=== PATIENT | male | born 1960 | race Caucasian/White ===

== ENCOUNTER 2025-02-12 12:06 | Inpatient (IN) | payer MEDICAID, OTHER ==
[2025-02-11 20:00] VITALS: RESP 15; O2SAT 95
[~2025-02-12] VITALS: Ht 172.7 cm; Wt 73.0 kg
[2025-02-12] VITALS (28 sets, daily range): BP systolic 111–191; BP diastolic 66–114; PULSE 73–108; RESP 12–23; TEMP 98.3–98.7; O2SAT 92–100
--- NOTE | 2025-02-12 12:18 | ED.PDOC ---
HPI Comments 64 year old male presents to the ED via EMS with a chief complaint of chest pain onset last night. Per EMS, patient was at [facility], had elevated Troponin greater than 3000, negative d-dimer. Patient states he began experiencing LT sided chest pain last night, described as a sharp pain, 8/10 as well as shortness of breath. He was given Nitro and Aspirin by EMS prior to ED arrival. Denies headache, dizziness, nausea, vomiting, abdominal pain, fever, chills. No other symptoms or modifying factors present at this time. Chief Complaint: Chest Pain Time Seen by MD: 12:10 Reviewed Notes: Medications, Allergies Allergies: Coded Allergies: NSAIDs (Verified Allergy, Intermediate, 02/12/25) Information Source: Patient, Emergency Med Personnel Mode of Arrival: EMS Severity: Moderate Timing: Days Duration: Since onset Prehospital treatment: Other (Nitro, aspirin ) Location: Chest (L) Radiation: No Radiation Quality: Sharp Onset: At Rest PE Risk Factors: None History of: None Associated Signs and Symptoms: SOB Past Medical History PAST MEDICAL HISTORY: Unknown Surgical History: Unknown Family History Family History: Reviewed,noncontributory to illness, No family hx of Cancer, No family hx of DM, No family hx of Heart law, No family hx of HTN, No family hx ofKidney law, No family hx of Liver law, No family hx of Lung law, No family hx of Stroke Social History Smoker: Non-Smoker Alcohol: Denies ETOH Use Drugs: Denies Drug Use Lives In: Home Constitutional: denies: chills, diaphoresis, fatigue, fever, malaise, sweats, weakness, others EENTM: denies: blurred vision, double vision, ear bleeding, ear discharge, ear drainage, ear pain, ear ringing, eye pain, eye redness, hearing loss, mouth pain, mouth swelling, nasal discharge, nose bleeding, nose congestion, nose pain, photophobia, tearing, throat pain, throat swelling, voice changes, others Respiratory: reports: shortness of breath; denies: cough, hemoptysis, orthopnea, SOB at rest, SOB with excertion, stridor, wheezing, others Cardiovascular: reports: chest pain; denies: dizzy spells, diaphoresis, Dyspnea on exertion, edema, irregular heart beat, left arm pain, lightheadedness, palpitations, PND, syncope, others Gastrointestinal: denies: abdomen distended, abdominal pain, blood streaked bowels, constipated, diarrhea, dysphagia, difficulty swallowing, hematemesis, melena, nausea, poor appetite, poor fluid intake, rectal bleeding, rectal pain, vomiting, others Genitourinary: denies: burning, dysuria, flank pain, frequency, hematuria, incontinence, penile discharge, penile sore, pain, testicle pain, testicle swelling, urgency, others Neurological: denies: dizziness, fainting, headache, left sided numbness, left sided weakness, numbness, paresthesia, pre-existing deficit, right sided numbness, right sided weakness, seizure, speech problems, tingling, tremors, weakness, others Musculoskeletal: denies: back pain, gout, joint pain, joint swelling, muscle pain, muscle stiffness, neck pain, others Integumetry: denies: bruises, change in color, change in hair/nails, dryness, laceration, lesions, lumps, rash, wounds, others Allergic/Immunocompromised: denies: Difficulty Healing, Frequent Infections, Hives, Itching, others Hematologic/Lymphatic: denies: anemia, blood clots, easy bleeding, easy bruising, swollen glands, others Endocrine: denies: excessive hunger, excessive sweating, excessive thirst, excessive urination, flushing, intolerance to cold, intolerance to heat, unexplained weight gain, unexplained weight loss, others Psychiatric: denies: anxiety, bipolar disorder, depression, hopeless, panic disorder, schizophrenia, sleepless, suicidal, others All Other Systems: Reviewed and Negative Physical Exam General Appearance: No Apparent Distress, Normal HEENT: Normal ENT Inspection, Pharynx Normal, TMs Normal Neck: Full Range of Motion, Non-Tender, Normal, Normal Inspection Respiratory: Chest Non-Tender, Lungs Clear, No Accessory Muscle Use, No Respiratory Distress, Normal Breath Sounds Cardiovascular: No Edema, No JVD, No Murmur, No Gallop, Normal Peripheral Pulses, Regular Rate/Rhythm Breast Exam: Deferred Gastrointestinal: No Organomegaly, Non Tender, No Pulsatile Mass, Normal Bowel Sounds, Soft Genitalia: Deferred Pelvic: Deferred Rectal: Deferred Extremities: No calf tenderness, Normal capillary refill, Normal inspection, Normal range of motion, Non-tender, No pedal edema Musculoskeletal : Apperance: Normal Neurologic: Alert, replenishment specialist II-XII nml as Tested, No Motor Deficits, Normal Affect, Normal Mood, No Sensory Deficits Cerebellar Function: Normal Reflexes: Normal Skin: Dry, Normal Color, Warm Lymphatic: No Adenopathy Was a procedure done? Was a procedure done?: No CP Differential Dx Differential Diagnosis: MAT, PAC's Differential Diagnosis: Medical NonCompliance Differential Diagnosis: Gastritis, Myocardial Infarction X-Ray, Labs, Meds, VS Vital Signs Date Time Temp Pulse Resp B/P (MAP) Pulse Ox O2 Delivery O2 Flow Rate FiO2 02/12/25 13:30 91 02/12/25 13:17 88 02/12/25 12:22 99.4 100 18 140/72 (94) 98 99.4 02/12/25 12:07 94 Lab Test 02/12/25 13:40 02/12/25 12:42 Range/Units Troponin I High Sensitivity Pending 5823 *H </=54 ng/L White Blood Count 9.5 4.4-10.8 10^3/uL Red Blood Count 4.92 4.5-5.90 10^6/uL Hemoglobin 14.1 13.5-17.5 g/dL Hematocrit 43.1 41.0-53.0 % Mean Corpuscular Volume 87.6 80.0-100.0 fL Mean Corpuscular Hemoglobin 28.6 28.0-32.0 pg Mean Corpuscular Hemoglobin Concent 32.6 32.0-36.0 g/dL Red Cell Distribution Width 16.0 H 11.8-14.3 % Platelet Count 239 140-450 10^3/uL Mean Platelet Volume 7.8 6.9-10.8 fL Neutrophils (%) (Auto) 63.2 37.0-80.0 % Lymphocytes (%) (Auto) 27.3 10.0-50.0 % Monocytes (%) (Auto) 7.5 0.0-12.0 % Eosinophils (%) (Auto) 1.3 0.0-7.0 % Basophils (%) (Auto) 0.7 0.0-2.0 % Neutrophils # (Auto) 6.0 1.6-8.6 10 ^3/uL Lymphocytes # (Auto) 2.6 0.4-5.4 10 ^3/uL Monocytes # (Auto) 0.7 0-1.3 10 ^3/uL Eosinophils # (Auto) 0.1 0-0.8 10 ^3/uL Basophils # (Auto) 0.1 0-0.2 10 ^3/uL Nucleated Red Blood Cells 0.2 % Prothrombin Time Pending Prothrombin Time INR Pending Activated Partial Thromboplast Time Pending Sodium Level 136 136-145 mmol/L Potassium Level 4.4 3.5-5.1 mmol/L Chloride Level 106 98-107 mmol/L Carbon Dioxide Level 25 20-31 mmol/L Anion Gap 5 5-15 Blood Urea Nitrogen 21 9-23 mg/dL Creatinine 1.94 H 0.700-1.30 mg/dL Glomerular Filtration Rate Calc 38 >90 mL/min BUN/Creatinine Ratio 10.8 10.0-20.0 Serum Glucose 150 H 74-106 mg/dL Calcium Level 9.6 8.7-10.4 mg/dL B-Type Natriuretic Peptide 74.88 0-100 pg/mL Current Medications Medications (Trade) Dose Ordered Sig/Jose Route Start Time Stop Time Status Last Admin Heparin Sodium (Porcine) 4,000 units ONCE ONCE IV 02/12/25 14:00 02/12/25 14:01 DC 02/12/25 14:01 [place] [id number] Ph: [phone] DIAGNOSTIC IMAGING Diagnostic Imaging Report : [id number] Signed PATIENT: NEPTALI VALADEZ ACCT: [id number] UNIT: [id number] : 1960 LOC: ER ROOM / BED: / AGE / SEX: 64 / M ADM STATUS: REG ER SERVICE 1212 ORDERING PHYSICIAN: ARACELIS ROMERO MD PROCEDURE(s): CXRP - CHEST PORTABLE REASON: chest pain ORDER NUMBER(s): [id number], ACCESSION NUMBER(s): [id number] EXAM: XY CHEST PORTABLE HISTORY: chest pain COMPARISON: None TECHNIQUE: Portable upright AP view of the chest was performed. FINDINGS: No pneumothorax, consolidative infiltrates, or pulmonary edema. The heart is not enlarged. The aortic arch is calcific. IMPRESSION: No acute intrathoracic process. ATED BY: RADHA NOBLE MD DICTATED DATE/TIME: 02/12/25 1237 SIGNED BY: RADHA NOBLE MD SIGNED DATE/TIME: 02/12/25 1237 CC: Time of 1ST Reevaluation: 14:05 Reevaluation 1ST: Unchanged Patient Education/Counseling: Diagnosis, Treatment, Prognosis Family Education/Counseling: No Family Present Additional Information The following tests were ordered, and results were reviewed by me: TROP -x3, EKG -x3, BMP, CBC, BNP, XY CHEST Additional Information was gathered from interviewing the following independent historians: EMS I reviewed and agreed with the following test results read by other providers: XY CHEST I discussed treatment and results with medical personnel and: patient Comprehensive systems review obtained and negative except for what is stated in the HPI. Departure 1 Departure Time of Disposition: 14:04 (Comfort authorization to admit here [id number] presented with chest pain that was concerning for possible STEMI, ACS, PE, Pneumonia, Muscle Strain, COPD, Dissection. Data: 1. I ordered and reviewed the result of at least 3 labs including a CBC, BMP, and Troponin. 2. I independently interpreted the following tests: EKG which shows sinus arrhythmia and Chest X-ray which shows benign chest.Risk:This patient has a high risk of morbidity due to further diagnostic testing or treatment and may suffer from an acute cardiac or respiratory disorder. Workup reveals NSTEMI and patient should be admitted for further workup and possible expert consultation. ) Impression: Primary Impression: NSTEMI (non-ST elevated myocardial infarction) Additional Impression: Acute chest pain Disposition: 09 ADMITTED INPATIENT Admit to: Tele Condition: Guarded Critical Care Note Critical Care Time?: Yes Critical care comment: Acute chest pain Authorized and Performed by: Aracelis Romero MD Total critical care time: Approximately 39 minutes Due to a high probability of clinically significant, life threatening d eterioration, the patient required my highest level of preparedness to intervene emergently and I personally spent this critical care time directly and personally managing the patient. This critical care time included obtaining a history; examining the patient; pulse oximetry; ordering and review of studies; arranging urgent treatment with development of a management plan; evaluation of patient's response to treatment; frequent reassessment; and, discussions with other providers. This critical care time was performed to assess and manage the high probability of imminent, life-threatening deterioration that could result in multi-organ failure. It was exclusive of separately billable procedures and treating other patients and teaching time. Please see my other sections and the rest of the note for further information on patient assessment and treatment. Stability Stability form required: No Heart Score Heart Score: Heart Score Response (Comments) Value History Moderate Suspicious 1 EKG Repolarization Disturb 1 Age 45-64 1 Risk Factors 1 or 2 risk factors 1 Troponin >3 x's Normal limit 2 Total 6 I personally scribed for ARACELIS ROMERO MD ([email or web address]) on 02/12/25 at 12:18. Electronically submitted by Pamela Loera ([email or web address]). I personally scribed for ARACELIS ROMERO MD ([email or web address]) on 02/12/25 at 12:19. Electronically submitted by Pamela Loera ([email or web address]). I personally scribed for ARACELIS ROMERO MD ([email or web address]) on 02/12/25 at 12:54. Electronically submitted by Pamela Loera ([email or web address]). ARACELIS ROMERO MD February 12, 2025 12:18
--- NOTE | 2025-02-12 12:40 | DVH ---
EXAM: XY CHEST PORTABLE HISTORY: chest pain COMPARISON: None TECHNIQUE: Portable upright AP view of the chest was performed. FINDINGS: No pneumothorax, consolidative infiltrates, or pulmonary edema. The heart is not enlarged. The aortic arch is calcific. IMPRESSION: No acute intrathoracic process.
[2025-02-12 12:51] LABS: Basophils # (auto) 0.1 10 ^3/uL (0-0.2); Basophils % (auto) 0.7 % (0.0-2.0); Eosinophils # (auto) 0.1 10 ^3/uL (0-0.8); Eosinophils % (auto) 1.3 % (0.0-7.0); Hematocrit 43.1 % (41.0-53.0); Hemoglobin 14.1 g/dL (13.5-17.5); Lymphocytes # (auto) 2.6 10 ^3/uL (0.4-5.4); Lymphocytes % (auto) 27.3 % (10.0-50.0); Mean Corpuscular Hemoglobin 28.6 pg (28.0-32.0); Mean Corpuscular Hgb Conc. 32.6 g/dL (32.0-36.0); Mean Corpuscular Volume 87.6 fL (80.0-100.0); Monocytes # (auto) 0.7 10 ^3/uL (0-1.3); Monocytes % (auto) 7.5 % (0.0-12.0); Neutrophils % (auto) 63.2 % (37.0-80.0); Nucleated Red Blood Cells % 0.2 %; Platelet Count (auto) 239 10^3/uL (140-450); Red Blood Cells 4.92 10^6/uL (4.5-5.90); White Blood Cell 9.5 10^3/uL (4.4-10.8)
[2025-02-12 13:01] LABS: Chloride 106 mmol/L (98-107); Potassium 4.4 mmol/L (3.5-5.1); Sodium 136 mmol/L (136-145)
[2025-02-12 13:02] LABS: Anion Gap 5 (5-15); Calcium 9.6 mg/dL (8.7-10.4); Carbon Dioxide 25 mmol/L (20-31)
[2025-02-12 13:07] LABS: BUN/Creatinine Ratio 10.8 (10.0-20.0); Blood Urea Nitrogen 21 mg/dL (9-23)
[2025-02-12 13:10] LABS: Glucose 150 mg/dL (74-106)
[2025-02-12] MEDS: HEPARIN SODIUM (PORCINE) 5000 UNITS/ML 1ML VIAL IV ONE (14:01)
[2025-02-12] MEDS: HEPARIN DRIP/D5W 100UNITS/ML 250 ML IV SCH ×2 (14:11→22:19)
[2025-02-12 14:12] LABS: INR 0.99 (0.9-1.15); Partial Thromboplastin Time 29.3 SEC (24.5-34.5); Prothrombin Time 10.5 sec (9.3-11.8)
[2025-02-12 15:14] LABS: Triglycerides 208 mg/dL (< 150)
[2025-02-12 15:15] LABS: LDL Cholesterol 153 mg/dL (< 100)
[2025-02-12 15:16] LABS: HDL Cholesterol 58 mg/dL (40-59)
[2025-02-12 15:17] LABS: Cholesterol 245 mg/dL (< 200)
--- NOTE | 2025-02-12 15:24 | DVHINCON2 ---
Date Seen: February 12, 2025 Referring Physician MD Heather Reason for Consultation NSTEMI History of Present Illness This is a pleasant 64-year-old man who presented to the emergency room via EMS from local [facility] with a chief complaint of chest pain x 3 days. The patient complains of progressive chest pain described as left-sided, radiating to the left upper back, non provoked, intermittent, and pressure-like. medicated at home with her Percocet and morphine with mild relief of symptoms which returned soon after. Denies shortness of breath, palpitations, diaphoresis, dizziness, or syncopal events. He has undergone multiple 12 lead electrocardiograms x 2 revealing a sinus rhythm without evidence of acute ST-T segment changes. Troponin levels are trending up with latest >6,000 ng/L (initial trop at [facility] was 3,000s ng/L). Denies family history for cardiovascular disease. Significant medical history includes hypertension, dyslipidemia, insulin-dependent diabetes mellitus, chronic kidney disease, HIV positive, history of tobacco use including 21 pack years, depression, and obesity. Past Medical History Past medical history reviewed. No other significant than mentioned above. Past Surgical History Ureteral stent placement, 2012 Family History Family history reviewed. Not significant for cardiovascular disease. Social History Denies the use of illicit drugs or tobacco use. Admits to occasional alcohol use. Reports history of tobacco use, quit two years ago. Allergies: Coded Allergies: NSAIDs (Verified Allergy, Intermediate, 02/12/25) Home Meds Home medications reviewed. Current Medications Current Medications Medications (Trade) Dose Ordered Sig/Jose Route PRN Reason Start Time Stop Time Status Last Admin Heparin Sodium/ Dextrose 250 ml @ 9 mls/hr Q24H IV 02/12/25 14:00 02/12/25 14:11 Review of Systems Constitutional: No symptom reported Ears, Nose, & Throat: No symptom reported Eyes: No symptom reported Neurological: No symptoms reported Pulmonary/Respiratory: No symptom reported Cardiovascular: Chest pain Gastrointestinal: No symptom reported Genitourinary: No symptom reported Musculoskeletal: No symptom reported Skin: No symptom reported Psychiatric: No symptom reported Endocrine: No symptom reported Hemotologic/Lymphatic: No symptom reported Vital Signs Vital Signs Date Time Temp Pulse Resp B/P (MAP) Pulse Ox O2 Delivery O2 Flow Rate FiO2 02/12/25 15:01 90 02/12/25 13:34 11 139/77 (97) 93 02/12/25 13:15 Room Air* 0 21 02/12/25 12:22 99.4 99.4 Physical Exam General Appearance: Cooperative. Well developed. Obese. In no acute distress Head Exam: Normal inspection Neck Exam: Normal inspection. Non-tender. Normal alignment Pulmonary/Respiratory: Chest non-tender. Clear bilateral breath sounds Cardiovascular/Chest: Regular rate and rhythm. S1, S2. Sinus rhythm. No murmurs. No JVD. Peripheral Pulses: 2+ Radial (R). 2+ Radial (L). 2+ Pedal (R). 2+ Pedal (L) Abdominal Exam: Normal bowel sounds. Soft. Nontender. No hepatospenomegaly. No masses Ankle Exam: Negative ankle edema Lower extremities: Negative lower extremity edema Neuro/Mental Status: A&O x4. Coherent Thoughts/Psych: Normal thought pattern. Appropriate mood and affect. Good judgement and insight Appearance: In no acute distress Skin Exam: Normal inspection. Normal color. Warm. Dry Labs/Diagnostic Data Labs Test 02/12/25 13:40 02/12/25 12:42 Range/Units Troponin I High Sensitivity 6542 *H </=54 ng/L White Blood Count 9.5 4.4-10.8 10^3/uL Red Blood Count 4.92 4.5-5.90 10^6/uL Hemoglobin 14.1 13.5-17.5 g/dL Hematocrit 43.1 41.0-53.0 % Mean Corpuscular Volume 87.6 80.0-100.0 fL Mean Corpuscular Hemoglobin 28.6 28.0-32.0 pg Mean Corpuscular Hemoglobin Concent 32.6 32.0-36.0 g/dL Red Cell Distribution Width 16.0 H 11.8-14.3 % Platelet Count 239 140-450 10^3/uL Mean Platelet Volume 7.8 6.9-10.8 fL Neutrophils (%) (Auto) 63.2 37.0-80.0 % Lymphocytes (%) (Auto) 27.3 10.0-50.0 % Monocytes (%) (Auto) 7.5 0.0-12.0 % Eosinophils (%) (Auto) 1.3 0.0-7.0 % Basophils (%) (Auto) 0.7 0.0-2.0 % Neutrophils # (Auto) 6.0 1.6-8.6 10 ^3/uL Lymphocytes # (Auto) 2.6 0.4-5.4 10 ^3/uL Monocytes # (Auto) 0.7 0-1.3 10 ^3/uL Eosinophils # (Auto) 0.1 0-0.8 10 ^3/uL Basophils # (Auto) 0.1 0-0.2 10 ^3/uL Nucleated Red Blood Cells 0.2 % Prothrombin Time 10.5 9.3-11.8 sec Prothrombin Time INR 0.99 0.9-1.15 Activated Partial Thromboplast Time 29.3 24.5-34.5 SEC Sodium Level 136 136-145 mmol/L Potassium Level 4.4 3.5-5.1 mmol/L Chloride Level 106 98-107 mmol/L Carbon Dioxide Level 25 20-31 mmol/L Anion Gap 5 5-15 Blood Urea Nitrogen 21 9-23 mg/dL Creatinine 1.94 H 0.700-1.30 mg/dL Glomerular Filtration Rate Calc 38 >90 mL/min BUN/Creatinine Ratio 10.8 10.0-20.0 Serum Glucose 150 H 74-106 mg/dL Calcium Level 9.6 8.7-10.4 mg/dL B-Type Natriuretic Peptide 74.88 0-100 pg/mL Triglycerides Level 208 H < 150 mg/dL Cholesterol Level 245 H < 200 mg/dL LDL Cholesterol 153 H < 100 mg/dL HDL Cholesterol 58 40-59 mg/dL Assessment Non ST-elevation myocardial infarction Rule out structural heart disease Hypertension Dyslipidemia Insulin-dependent diabetes mellitus Positive HIV status Obesity Plan/Recommendation (Dr. Higgins) Scheduled for urgent cardiac catheterization and coronary angiogram at first available. All risks and benefits of the procedure were discussed with the patient and at beside who agreed to proceed with intervention. All questions answered. In the meantime, continue heparin drip per pharmacy protocol as well as a transthoracic echocardiogram to rule out structural heart disease. Initiate renal protection and obtain nephrology consultation. Monitor ECG changes and notify. Continue ACS protocol. Thank you for allowing us to participate in this patient's care. Please call if you have any questions or concerns. Critical care time: 40 min. This medical document was created using an electronic medical record system with voice recognition software and computerized dictation system. Although this document has been carefully reviewed, there might still be some phonetic and typographical errors. Occasional wrong-word or ``sound-alike substitutions may have occurred due to the inherent limitations of voice recognition software. These areas are purely typographical due to imperfections of the software programs and do not reflect any compromise in the patient's medical care. Please read the chart carefully and recognize, using context, where these substitutions have occurred. Plan discussed with: Patient, Other NYHA Physical activity limitations: NA Date of Service: February 12, 2025 Billing Provider: JAKY BARRIGA Cardiology Common Codes: 31858-XUWEIODL CARE 30-74 MIN JAKY BARRIGA February 12, 2025 15:24
[2025-02-12] MEDS: IODIXANOL 320MG/ML 100ML BTL IV ONE ×2 (15:42→16:21)
[2025-02-12] MEDS ORDERED: ASPirin 81 mg TAB PO SCH (16:04)
[2025-02-12] MEDS: ANGIOMAX 250 MG VIAL IV ONE (16:15)
[2025-02-12] MEDS: LIDOCAINE 2%HCL (LOCAL ANESTH.) INJ 20ML MDV ONE (16:16)
[2025-02-12] MEDS: VERAPAMIL 2.5MG/ML INJ 2ML VIAL IV ONE (16:16)
[2025-02-12] MEDS: SODIUM CHL 0.9% 50 ML ONE (16:16)
[2025-02-12] MEDS: HEPARIN SODIUM (PORCINE) 5000 UNITS/ML 1ML VIAL ONE (16:16)
[2025-02-12] MEDS: fentaNYL CITRATE 100 MCG/2 ML VL ONE (16:18)
[2025-02-12] MEDS: MIDAZOLAM HCL 2MG/2ML 2ml VIAL (1mg/ml) ONE (16:19)
--- NOTE | 2025-02-12 17:12 | DVHOP2 ---
Operative Report - 2 Report Details Date: 02/12/25 Preop Diagnosis: CAD Postop Diagnosis: Severe stenosis of the RCA. Distal left main disease. Circumflex disease. Normal LV function Surgeon: Trina Higgins MD Anesthesiologist: Conscious sedation. Anesthesia: Mac, Local Consent: The patient was informed of the risks and benefits of the procedure. These include but are not limited to complications of anesthesia, postoperative infection, incomplete relief of symptoms, recurrence of symptoms, damage to blood vessels, nerves and tendons, deep venous thrombosis, pulmonary embolism and possible need for repeat surgery in the future. Complications: No complications Findings: CAD Indications for Surgery: Non ST-elevation GA Name of Procedure Performed Left heart catheterization. Bilateral cine coronary angiography. Left ventriculography. Intravascular ultrasound evaluation of distal left main. Procedure Details Procedure Details: Prior local anesthesia with 2% lidocaine to the right wrist and full informed consent obtained the patient was prepped and draped in usual fashion followed by placement of a six Thai sheath into the radial artery through which a three five EBU guide was used for ventriculography and cannulation of both right and left coronary ostia without complications. Hemodynamics: Aortic blood pressure was 130/50 end-diastolic pressure was 18. There was no gradient across aortic valve on pullback. Coronary anatomy: The RCA is a large vessel it has a 99% subtotal stenosis at its mid section. Distal segment has a 75 80% lesion. Posterolateral branches and PDA are within normal limits. Left main is large. It is normal in its proximal mid section. There is a lesion involving the distal left main LAD and circumflex. The circumflex proximally is normal. The mid circumflex gives off an obtuse marginal branch. The obtuse marginal at its mid section has a 90% stenosis. Left anterior descending coronary artery is a large vessel we will the ostial LAD being involved with the plaque extending from the left main to the LAD as well as into the circumflex. The mid and distal LAD are free of significant disease as are the diagonals. Intravascular ultrasound was performed of the distal left main. Total circumferential area of the distal left main at the level of the LAD is 4.8 mm squared. This is indicative of severe stenosis. Ventriculography in the THAKUR projection shows an EF of 55% Impression: Distal left main disease. Severe stenosis of the RCA. Normal ejection fraction. Elevated left ventricular end-diastolic pressure. Significant disease of the distal left main with a circumferential area of less than 4.8. This is indicative of severe left main disease Recommendations: Patient will be transferred for coronary bypass grafting. Condition Good Disposition Still a Patient Date of Service: February 12, 2025 Billing Provider: TRINA HIGGINS Sr., MD Cardiology Common Codes: PROCEDURE ONLY Cardiology Procedure Codes: 92547-YPIC HEART CATH W/INTRA INJ (Intravascular ultrasound evaluation of the left main) TRINA HIGGINS Sr., MD February 12, 2025 17:12
[2025-02-12] MEDS ORDERED: MORPHINE SULFATE INJ 2 MG/ml SYRG IV PRN ×2 (17:15→17:30)
[2025-02-12] MEDS ORDERED: NITROGLYCERIN 0.4 MG SL TAB SL PRN ×2 (17:15→17:30)
[2025-02-12] MEDS ORDERED: hydrALAZINE HCL 20 MG/ML VL IV PRN (17:15)
[2025-02-12] MEDS ORDERED: NITROGLYCERIN 50MG/250ML 250 ML IV ONE (17:15)
[2025-02-12] MEDS ORDERED: ONDANSETRON HCL 4 MG/2 ML VIAL IV PRN (17:30)
[2025-02-12] MEDS ORDERED: MORPHINE SULFATE 4 MG/ML SYR/VIAL IV PRN (17:30)
[2025-02-12] MEDS ORDERED: ACETAMINOPHEN 325 MG TAB PO PRN (17:30)
--- NOTE | 2025-02-12 17:41 | DVHHP2 ---
History of Present Illness Reason for Visit: Chest pain History of Present Illness Ian Mcnulty is a 64-year-old male with past medical history of hypertension, diabetes type 2, HIV/AIDS, and anemia who presents to the ED with chest pain radiating to his back. Patient states that the chest pain is 9/10 pressure-like and sharp in his back constant. He states that he was at home watching TV at the time when the pain started. Patient states started the no triggering or alleviating factors. Patient also reports that he does not use home oxygen however upon examination patient is on 2 L nasal cannula. Patient denies any recent trauma or injury, recent sick contacts, recent travels, recent ingestion of spoiled food, fever chills, lightheadedness, weakness, dizziness, abdominal pain, nausea, vomiting, or diarrhea. Cardiovascular: HTN Heme/Onc: Anemia NOS Endocrine: Diabetes Past Medical History HIV/aids Past Surgical History: None Family History: None Smoke: Quit ALCOHOL: none Drugs: None Lives: with Family Domestic Violence: Neg Review of Systems Cardiovascular: Chest Pain Allergies: Coded Allergies: NSAIDs (Verified Allergy, Intermediate, 02/12/25) Medications Current Medications Medications Dose Ordered Sig/Jose Route Start Time Stop Time Status Last Admin Dose Admin Heparin Sodium/ Dextrose 250 ml @ 9 mls/hr Q24H IV 02/12/25 14:00 02/12/25 14:11 9 MLS/HR Sodium Chloride 1,000 ml @ 75 mls/hr [id number] IV 02/12/25 15:30 Atorvastatin Calcium 40 mg HS PO 02/12/25 22:00 Aspirin 81 mg DAILY PO 02/12/25 16:04 Hold Carvedilol 6.25 mg Q12HR PO 02/12/25 22:00 UNV Hydralazine HCl 10 mg Q6HP PRN IV 02/12/25 17:15 UNV Aspirin 81 mg DAILY PO 02/13/25 10:00 UNV Morphine Sulfate 2 mg Q30M PRN IV 02/12/25 17:15 UNV Nitroglycerin 250 ml @ 1.5 mls/hr Q24H IV 02/12/25 17:15 UNV Exam Vital Signs Vital Signs Date Time Temp Pulse Resp B/P (MAP) Pulse Ox O2 Delivery O2 Flow Rate FiO2 02/12/25 16:16 87 168/98 02/12/25 13:34 11 93 02/12/25 13:15 Room Air* 0 21 02/12/25 12:22 99.4 99.4 General Appearance: Alert, Oriented X3, Cooperative, No acute distress HEENT: Atraumatic, PERRLA, EOMI, Mucous membr. moist/pink Respiratory: Normal air movement Cardiovascular: Regular rate, Normal S1, Normal S2, No murmurs Abdominal: Soft Extremities: No clubbing, No cyanosis, No edema, Normal pulses Skin: No significant lesion Neuro: Normal speech, Strength at 5/5 X4 ext, Normal tone, Sensation intact Psych/Mental Status: Mental status NL, Mood NL Labs/Xrays Labs Test 02/12/25 13:40 02/12/25 12:42 Range/Units Troponin I High Sensitivity 6542 *H </=54 ng/L White Blood Count 9.5 4.4-10.8 10^3/uL Red Blood Count 4.92 4.5-5.90 10^6/uL Hemoglobin 14.1 13.5-17.5 g/dL Hematocrit 43.1 41.0-53.0 % Mean Corpuscular Volume 87.6 80.0-100.0 fL Mean Corpuscular Hemoglobin 28.6 28.0-32.0 pg Mean Corpuscular Hemoglobin Concent 32.6 32.0-36.0 g/dL Red Cell Distribution Width 16.0 H 11.8-14.3 % Platelet Count 239 140-450 10^3/uL Mean Platelet Volume 7.8 6.9-10.8 fL Neutrophils (%) (Auto) 63.2 37.0-80.0 % Lymphocytes (%) (Auto) 27.3 10.0-50.0 % Monocytes (%) (Auto) 7.5 0.0-12.0 % Eosinophils (%) (Auto) 1.3 0.0-7.0 % Basophils (%) (Auto) 0.7 0.0-2.0 % Neutrophils # (Auto) 6.0 1.6-8.6 10 ^3/uL Lymphocytes # (Auto) 2.6 0.4-5.4 10 ^3/uL Monocytes # (Auto) 0.7 0-1.3 10 ^3/uL Eosinophils # (Auto) 0.1 0-0.8 10 ^3/uL Basophils # (Auto) 0.1 0-0.2 10 ^3/uL Nucleated Red Blood Cells 0.2 % Prothrombin Time 10.5 9.3-11.8 sec Prothrombin Time INR 0.99 0.9-1.15 Activated Partial Thromboplast Time 29.3 24.5-34.5 SEC Sodium Level 136 136-145 mmol/L Potassium Level 4.4 3.5-5.1 mmol/L Chloride Level 106 98-107 mmol/L Carbon Dioxide Level 25 20-31 mmol/L Anion Gap 5 5-15 Blood Urea Nitrogen 21 9-23 mg/dL Creatinine 1.94 H 0.700-1.30 mg/dL Glomerular Filtration Rate Calc 38 >90 mL/min BUN/Creatinine Ratio 10.8 10.0-20.0 Serum Glucose 150 H 74-106 mg/dL Calcium Level 9.6 8.7-10.4 mg/dL B-Type Natriuretic Peptide 74.88 0-100 pg/mL Triglycerides Level 208 H < 150 mg/dL Cholesterol Level 245 H < 200 mg/dL LDL Cholesterol 153 H < 100 mg/dL HDL Cholesterol 58 40-59 mg/dL Thyroid Stimulating Hormone (TSH) 4.83 H 0.55-4.78 uIU/mL Assessment/Plan Assessment/Plan Assessment NSTEMI Acute hypoxic respiratory failure FLO Hyperlipidemia Ex-smoker History of hypertension History of diabetes type 2 History of anemia History of HIV/aids Plan Admit to ICU Nitro drip Elevated trops Hemoglobin A1c ISS and Accu-Cheks Antiemetics Pain management Diet UDS TSH Lipid panel Echo Home medications reconciled DVT prophylaxis-patient on drip PUD prophylaxis-not indicated no history of GERD or GI bleed Discussed plan of care with patient and nurse Plan to transfer to [place] for CABG consult Counseled patient on continuous of cessation of tobacco use Plan discussed with: Patient Date of Service: February 12, 2025 Billing Provider: HAYDEN VALDERRAMA Common Visit Codes: [id number] INP/OBS CARE (HIGH) HAYDEN VALDERRAMA February 12, 2025 17:41
[2025-02-12] MEDS ORDERED: DEXTROSE (50%) 50ML SYRG IV PRN (17:45)
[2025-02-12 18:15] LABS: HDL Cholesterol 57 mg/dL (40-59)
[2025-02-12 18:16] LABS: Cholesterol 238 mg/dL (< 200)
[2025-02-12 18:18] LABS: LDL Cholesterol 149 mg/dL (< 100); Triglycerides 203 mg/dL (< 150)
[2025-02-12] MEDS: NITROGLYCERIN 50MG/250ML 250 ML IV SCH (18:31)
[2025-02-12] MEDS: NITROGLYCERIN 50MG/250ML 250 ML IV ONE (20:07)
[2025-02-12] MEDS: SODIUM CHLORIDE 0.9% 1,000 ML IV SCH (20:10)
[2025-02-12] MEDS: ATORVASTATIN 20 MG TAB PO SCH (20:52)
[2025-02-12] MEDS: EZETIMIBE 10 MG TAB PO ONE (20:53)
[2025-02-12] MEDS: CARVEDILOL 3.125 MG TAB PO SCH (20:54)
[2025-02-12] MEDS: ACCU-CHEK COMFORT CURVE STRIP VI SCH (21:02)
[2025-02-12] MEDS: InsuLIN REG 1unit/0.01ml Soln (100units/ml) SC SCH (21:02)
[2025-02-12 21:21] LABS: INR 1.05 (0.9-1.15); Prothrombin Time 11.1 sec (9.3-11.8)
[2025-02-12 21:24] LABS: Partial Thromboplastin Time 79.4 SEC (24.5-34.5)
[2025-02-12] MEDS ORDERED: HEPARIN DRIP/D5W 100UNITS/ML 250 ML IV SCH (21:30)
[2025-02-12] MEDS ORDERED: LISI40TA16 PO (21:51)
[2025-02-12] MEDS ORDERED: EZET10TA22 PO (21:51)
[2025-02-12] MEDS ORDERED: GLIP10TA9 PO (21:51)
[2025-02-12] MEDS ORDERED: METO25TA5 PO (21:51)
[2025-02-12] MEDS ORDERED: CITA-73 PO (21:51)
[2025-02-12] MEDS ORDERED: PIO30T PO (21:51)
[2025-02-12] MEDS ORDERED: DOLU1TAB5 PO (21:51)
[2025-02-12] MEDS ORDERED: ATOR-47 PO (21:51)
[2025-02-12] MEDS ORDERED: RITO100T PO (21:51)
[2025-02-12] MEDS ORDERED: DARU800T3 PO (21:51)
--- NOTE | 2025-02-12 22:52 | DVHSR ---
APPROVED REPORT EXAM: Two-dimensional and M-mode echocardiogram with Doppler and color Doppler. Blood Pressure: 139/77 mmHg INDICATION NSTEMI RISK FACTORS Height: 69, Weight: 160 DIMENSIONS LVDd4.3 (3.8-5.7cm)LA (2D)3.7 (1.9-4.0cm)Aortic Root3.9 (2.0-3.7cm) LVDs3.4 (2.5-4.0cm)LA (MM) (1.9-4.0cm)Aortic Cusp Exc1.8 (1.5-2.0cm) EF (%) 46.0 (55-70%)Rt. Atrium (1.9-4.0cm)Asc. Aorta cm Mitral Valve MitralMitral Stenosis E wave0.63m/sMV Mean GR.mmHg A wave0.93m/sMV Peak GR.101mmHg E/A ratio0.72D MVAcm2 DECEL [id number] 1/2 [id number] IVRTmsDop MVA3.56cm2 Aortic Valve Aortic ValveAortic Stenosis V10.89m/Nilda Mean GR.4mmHg V21.29m/Nilda Peak GR.7mmHg LVOT Diameter2.1 (1.8-2.4cm)Doppler AVA2.39cm2 Pulmonic Valve V21.15m/s Other Information Technically limited study due to body habitus. Conclusion Sinus rhythm. Concentric LVH with the aortic root enlargement. Valves appear to be structurally normal. Left ventricular function is diminished. EF is about 35-40% with global hypokinesis. Normal RV func tion. Dopplers unremarkable. No pericardial effusion masses or vegetations
[2025-02-13] VITALS (74 sets, daily range): BP systolic 103–128; BP diastolic 58–81; PULSE 75–121; RESP 8–26; TEMP 97.9–98.9; O2SAT 86–99
[2025-02-13 04:10] LABS: Basophils # (auto) 0.1 10 ^3/uL (0-0.2); Basophils % (auto) 0.8 % (0.0-2.0); Eosinophils # (auto) 0.1 10 ^3/uL (0-0.8); Eosinophils % (auto) 1.4 % (0.0-7.0); Hematocrit 39.2 % (41.0-53.0); Hemoglobin 12.7 g/dL (13.5-17.5); Lymphocytes # (auto) 2.6 10 ^3/uL (0.4-5.4); Lymphocytes % (auto) 28.1 % (10.0-50.0); Mean Corpuscular Hemoglobin 28.4 pg (28.0-32.0); Mean Corpuscular Hgb Conc. 32.5 g/dL (32.0-36.0); Mean Corpuscular Volume 87.4 fL (80.0-100.0); Monocytes # (auto) 0.8 10 ^3/uL (0-1.3); Monocytes % (auto) 9.2 % (0.0-12.0); Neutrophils # (auto) 5.6 10 ^3/uL (1.6-8.6); Neutrophils % (auto) 60.5 % (37.0-80.0); Platelet Count (auto) 208 10^3/uL (140-450); Red Blood Cells 4.48 10^6/uL (4.5-5.90); Red Cell Distribution Width 16.1 % (11.8-14.3); White Blood Cell 9.2 10^3/uL (4.4-10.8)
[2025-02-13 04:15] LABS: Anion Gap 7 (5-15); Carbon Dioxide 22 mmol/L (20-31); Chloride 107 mmol/L (98-107); Potassium 4.4 mmol/L (3.5-5.1); Sodium 136 mmol/L (136-145)
[2025-02-13 04:16] LABS: Calcium 9.3 mg/dL (8.7-10.4)
[2025-02-13 04:21] LABS: BUN/Creatinine Ratio 9.9 (10.0-20.0); Blood Urea Nitrogen 17 mg/dL (9-23)
[2025-02-13 04:22] LABS: Glucose 142 mg/dL (74-106); Magnesium 1.8 mg/dL (1.6-2.6)
[2025-02-13] MEDS: HEPARIN DRIP/D5W 100UNITS/ML 250 ML IV SCH ×2 (04:32→12:31)
[2025-02-13] MEDS: ASPirin 81 mg TAB PO SCH (09:55)
[2025-02-13 10:46] LABS: INR 1.03 (0.9-1.15); Prothrombin Time 10.9 sec (9.3-11.8)
--- NOTE | 2025-02-13 12:15 | CONS ---
Pharmacy Clinical Information: INCREASE HEPARIN DRIP RATE TO 1100 UNITS/HR = 11 ML/HR PER APTT OF 42 (SUBTH ERAPEUTIC) NEXT APTT DRAW SCHEDULED FOR 1800 PER RX PROTOCOL REHAN COFFEY PHARMACIST February 13, 2025 12:15
--- NOTE | 2025-02-13 14:22 | DVHPN2 ---
Subjective No cardiac events reported Denies chest pain or shortness of breath Reviewed: Care Plan, Medications Changes from previous H/P or p: No Changes Cardiovascular: Chest Pain Objective Vitals Vital Signs Date Time Temp Pulse Resp B/P (MAP) Pulse Ox O2 Delivery O2 Flow Rate FiO2 02/13/25 12:02 18 96 Room Air* 0 21 02/13/25 10:55 81 115/69 02/13/25 08:00 98.9 98.9 Intake/Output Intake and Output 02/13/25 07:00 Intake Total 1218.5 ml Output Total 600 ml Balance 618.5 ml Intake Oral 240 ml IV Total 978.5 ml Output Urine Total 600 ml General Appearance: Alert, Oriented X3 Cardiovascular: Regular rate, Normal S1, Normal S2 Medications Current Medications Medications Dose Ordered Sig/Jose Route Start Time Stop Time Status Last Admin Dose Admin Sodium Chloride 1,000 ml @ 75 mls/hr [id number] IV 02/12/25 15:30 02/12/25 20:10 75 MLS/HR Atorvastatin Calcium 40 mg HS PO 02/12/25 22:00 02/12/25 20:52 40 MG Carvedilol 6.25 mg Q12HR PO 02/12/25 22:00 02/13/25 09:55 6.25 MG Hydralazine HCl 10 mg Q6HP PRN IV 02/12/25 17:15 Aspirin 81 mg DAILY PO 02/13/25 10:00 02/13/25 09:55 81 MG Morphine Sulfate 2 mg Q30M PRN IV 02/12/25 17:15 Nitroglycerin 250 ml @ 1.5 mls/hr Q24H IV 02/12/25 17:15 02/12/25 18:31 1.5 MLS/HR Morphine Sulfate 2 mg Q30MP PRN IV 02/12/25 17:30 Acetaminophen 650 mg Q6HP PRN PO 02/12/25 17:30 Ondansetron HCl 4 mg Q4HP PRN IV 02/12/25 17:30 Diagnostic Test (Pha) 1 strip ACHS 02/12/25 22:00 02/13/25 12:01 1 STRIP Insulin Human Regular ACHS SC 02/12/25 22:00 Dextrose 50 ml UD PRN IV 02/12/25 17:45 Heparin Sodium/ Dextrose 250 ml @ 7 mls/hr Q24H IV 02/12/25 21:30 Cancel Heparin Sodium/ Dextrose 250 ml @ 11 mls/hr [id number] IV 02/13/25 12:15 02/13/25 12:31 11 MLS/HR Laboratory Results Laboratory Tests 02/13/25 03:00 Chemistry Test 02/13/25 03:00 Calcium Level 9.3 mg/dL (8.7-10.4) Magnesium Level 1.8 mg/dL (1.6-2.6) Coagulation Test 02/12/25 20:44 02/13/25 03:00 02/13/25 10:21 Prothrombin Time 11.1 sec (9.3-11.8) 10.9 sec (9.3-11.8) Prothrombin Time INR 1.05 (0.9-1.15) 1.03 (0.9-1.15) Activated Partial Thromboplast Time 79.4 SEC (24.5-34.5) *H 43.3 SEC (24.5-34.5) H 42.0 SEC (24.5-34.5) H Microbiology Microbiology Date/Time Source Procedure Growth Status 02/12/25 20:00 Nose MRSA Screen - Final Complete Assessment/Plan Assessment/Plan CAD s/p coronary angiogram with multivessel disease Non ST-elevation myocardial infarction HFrEF - EF 35-40% Hypertension Dyslipidemia Insulin-dependent diabetes mellitus Positive HIV status Obesity Recommendations: Transfer to [facility] for [facility]G. Continue with current treatment. Close cardiac nurse practitioner. Plan discussed with: Patient Date of Service: February 13, 2025 Billing Provider: TRINA MOORE Sr., MD Common Visit Codes: CONSULT ONLY ARLETH GIPSON February 13, 2025 14:22
--- NOTE | 2025-02-13 15:41 | DVHDS2 ---
Discharge Summary Date of Admission February 12, 2025 at 17:27 Date of Discharge: February 13, 2025 Labs/Diagnostic Data: Laboratory Results Test 02/13/25 10:21 02/13/25 06:21 02/13/25 03:00 02/12/25 13:40 Prothrombin Time 10.9 sec (9.3-11.8) Prothrombin Time INR 1.03 (0.9-1.15) Activated Partial Thromboplast Time 42.0 SEC (24.5-34.5) POC Glucose 129 mg/dl (70-106) White Blood Count 9.2 10^3/uL (4.4-10.8) Red Blood Count 4.48 10^6/uL (4.5-5.90) Hemoglobin 12.7 g/dL (13.5-17.5) Hematocrit 39.2 % (41.0-53.0) Mean Corpuscular Volume 87.4 fL (80.0-100.0) Mean Corpuscular Hemoglobin 28.4 pg (28.0-32.0) Mean Corpuscular Hemoglobin Concent 32.5 g/dL (32.0-36.0) Red Cell Distribution Width 16.1 % (11.8-14.3) Platelet Count 208 10^3/uL (140-450) Mean Platelet Volume 8.8 fL (6.9-10.8) Neutrophils (%) (Auto) 60.5 % (37.0-80.0) Lymphocytes (%) (Auto) 28.1 % (10.0-50.0) Monocytes (%) (Auto) 9.2 % (0.0-12.0) Eosinophils (%) (Auto) 1.4 % (0.0-7.0) Basophils (%) (Auto) 0.8 % (0.0-2.0) Neutrophils # (Auto) 5.6 10 ^3/uL (1.6-8.6) Lymphocytes # (Auto) 2.6 10 ^3/uL (0.4-5.4) Monocytes # (Auto) 0.8 10 ^3/uL (0-1.3) Eosinophils # (Auto) 0.1 10 ^3/uL (0-0.8) Basophils # (Auto) 0.1 10 ^3/uL (0-0.2) Nucleated Red Blood Cells 0.0 % Sodium Level 136 mmol/L (136-145) Potassium Level 4.4 mmol/L (3.5-5.1) Chloride Level 107 mmol/L (98-107) Carbon Dioxide Level 22 mmol/L (20-31) Anion Gap 7 (5-15) Blood Urea Nitrogen 17 mg/dL (9-23) Creatinine 1.71 mg/dL (0.700-1.30) Glomerular Filtration Rate Calc 45 mL/min (>90) BUN/Creatinine Ratio 9.9 (10.0-20.0) Serum Glucose 142 mg/dL (74-106) Calcium Level 9.3 mg/dL (8.7-10.4) Magnesium Level 1.8 mg/dL (1.6-2.6) Troponin I High Sensitivity 6542 ng/L (</=54) Test 02/12/25 12:42 Hemoglobin A1c 8.3 % A1C (<5.7) B-Type Natriuretic Peptide 74.88 pg/mL (0-100) Triglycerides Level 203 mg/dL (< 150) Cholesterol Level 238 mg/dL (< 200) LDL Cholesterol 149 mg/dL (< 100) HDL Cholesterol 57 mg/dL (40-59) Thyroid Stimulating Hormone (TSH) 5.15 uIU/mL (0.55-4.78) Other Laboratory Tests 02/13/25 03:00 Brief Hx & Hospital Course: Final diagnoses: CAD s/p coronary angiogram with multivessel coronary artery disease Non ST-elevation myocardial infarction HFrEF - EF 35-40% Hypertension Dyslipidemia Insulin-dependent diabetes mellitus Positive HIV status Obesity Acute kidney injury versus chronic kidney disease 64-year-old male with a history of hypertension and diabetes and HIV and anemia came with the chest pain and back pain He was diagnosed with a NSTEMI with the elevated troponin of 6542 He was seen by Cardiology and an angiogram was done showed three-vessel coronary artery disease requiring CABG surgery and therefore he was recommended to be transferred to higher level of care He has been accepted at [facility] and we are waiting on a bed Vital signs stable He is stable for transfer Continue heparin IV drip Nitroglycerin IV drip p.r.n. chest pain IV fluids normal saline Aspirin Lipitor Coreg Transfer to higher level of care as soon as possible for CABG surgery Condition at Discharge: Stable Final Diagnosis/Problems List CAD s/p coronary angiogram with multivessel coronary artery disease Non ST-elevation myocardial infarction HFrEF - EF 35-40% Hypertension Dyslipidemia Insulin-dependent diabetes mellitus Positive HIV status Obesity Discharge Disposition: Acute Care Facility SNF Discharge Will this Physician continue t: No Discharge Statement: "Patient was advised to return to the ER or call 911 if any headaches, dizziness, shortness of breath, chest pain, abdominal pain, bleeding, fevers, or worsening of medical condition. Patient was counseled about treatment plan, medications, possible side effects, patientverbalized understanding. All questions were answered to the best of my ability. This discharge took greater then 30 minutes in planning, reviewing documentation, counseling the patient, and discussing with other team members." ASSESSMENT ASSESSMENT Assessment Severe stenosis of the RCA. Distal left main disease. Circumflexdisease. Normal LV function Date of Service: February 13, 2025 Billing Provider: CELY SAGE MD Common Visit Codes: [id number] DISCH DAY >30min CELY SAGE MD February 13, 2025 15:41
--- NOTE | 2025-02-13 16:07 | DVHINCON2 ---
Date of service: February 13, 2025 Referring Physician ivis Reason for Consultation scotty History of Present Illness 64 years old male with past medical history of Chronic kidney disease, diabetes, hypertension, HIV, history of tobacco use, depression, presented with chief complaints of chest pain for three days radiating to left upper back prior to admission patient underwent cardiac catheterization yesterday showing multive ssel disease and cardiology recommending higher level of care transfer for CT surgery evaluation Patient is currently on heparin drip Reports his chest pain is better Patient also got IV fluids from yesterday till today Renal function today after angiogram yesterday is stable Past Medical History As per HPI Past Surgical History As per HPI Allergies: Coded Allergies: Shellfish Allergy (Verified Allergy, Intermediate, swollen eyes/ itchy throat, 02/12/25) Home Meds Reported Medications Lisinopril (Lisinopril) 40 Mg Tab, 40 MG PO DAILY for 30 Days, MG 02/12/25 Dolutegravir/Rilpivirine (Juluca 50-25 mg) 1 Tab Tab, 1 TAB PO DAILY, TAB 02/12/25 Glipizide (Glipizide) 10 Mg Tab, 1 TAB PO BID, #60 TAB 5 Refills 02/12/25 Citalopram Hydrobromide (Citalopram Hydrobromide) 40 Mg Tab, 40 MG PO DAILY for 30 Days, MG 02/12/25 Darunavir Ethanolate (PREZISTA) 800 Mg Tab, 800 MG PO DAILY, TAB 02/12/25 Ritonavir (Norvir) 100 Mg Tab, 100 MG PO DAILY, TAB 02/12/25 Pioglitazone Hydrochloride (ACTOS TABLET) 30 Mg Tb, 45 MG PO DAILY, TAB 02/12/25 Ezetimibe (Zetia) 10 Mg Tab, 10 MG PO DAILY, TAB 02/12/25 Metoprolol Tartrate (Metoprolol Tartrate) 25 Mg Tab, 25 MG PO DAILY for 30 Days, MG 02/12/25 Atorvastatin Calcium (ATORVASTATIN CALCIUM) 80 Mg Tab, 1 TAB PO DAILY, #30 TAB 5 Refills 02/12/25 Current Medications Current Medications Medications (Trade) Dose Ordered Sig/Jose Route PRN Reason Start Time Stop Time Status Last Admin Atorvastatin Calcium (Lipitor) 40 mg HS PO 02/12/25 22:00 02/12/25 20:52 Carvedilol (Coreg Tablet) 6.25 mg Q12HR PO 02/12/25 22:00 02/13/25 09:55 Hydralazine HCl (Apresoline Injection) 10 mg Q6HP PRN IV SBP>150 02/12/25 17:15 Aspirin 81 mg DAILY PO 02/13/25 10:00 02/13/25 09:55 Nitroglycerin (Ntrostat Sublingual) 0.4 mg Q5MINP PRN SL FOR CHEST PAIN 02/12/25 17:15 02/12/25 17:11 DC Morphine Sulfate 2 mg Q30M PRN IV FOR CHEST PAIN 02/12/25 17:15 Nitroglycerin 250 ml @ 1.5 mls/hr Q24H IV 02/12/25 17:15 02/12/25 18:31 Morphine Sulfate 2 mg Q30MP PRN IV FOR CHEST PAIN 02/12/25 17:30 Acetaminophen (Tylenol Tablet) 650 mg Q6HP PRN PO MILD PAIN (1-3 PAIN SCALE) 02/12/25 17:30 Ondansetron HCl (Zofran) 4 mg Q4HP PRN IV NAUSEA / VOMITING 02/12/25 17:30 Nitroglycerin (Ntrostat Sublingual) 0.4 mg Q5MINP PRN SL FOR CHEST PAIN 02/12/25 17:30 02/12/25 18:02 DC Morphine Sulfate 2 mg Q30M PRN IV FOR CHEST PAIN 02/12/25 17:30 02/12/25 18:02 DC Diagnostic Test (Pha) (Accu-Chek Comfort Curve T) 1 strip ACHS 02/12/25 22:00 02/13/25 12:01 Insulin Human Regular (InsuLIN R) ACHS SC 02/12/25 22:00 Dextrose 50 ml UD PRN IV Blood Sugar LESS THAN 60 02/12/25 17:45 Heparin Sodium/ Dextrose 250 ml @ 7 mls/hr Q24H IV 02/12/25 21:30 Cancel Heparin Sodium/ Dextrose 250 ml @ 7 mls/hr Q24H IV 02/12/25 21:45 02/13/25 04:19 DC 02/12/25 22:19 Heparin Sodium/ Dextrose 250 ml @ 9 mls/hr Q24H IV 02/13/25 04:30 02/13/25 12:11 DC 02/13/25 04:32 Heparin Sodium/ Dextrose 250 ml @ 11 mls/hr [id number] IV 02/13/25 12:15 02/13/25 12:31 Family History: Diabetes mellitus G8 MOTHER Review of Systems As documented in HPI H&P Exam Vital Signs/I&O Vital Sign Date Time Temp Pulse Resp B/P (MAP) Pulse Ox O2 Delivery O2 Flow Rate FiO2 02/13/25 14:45 87 25 117/63 (81) 93 02/13/25 13:30 Room Air* 0 21 02/13/25 12:00 98.5 98.5 Intake and Output 02/12/25 02/13/25 19:00 07:00 Intake Total 1218.5 ml Output Total 600 ml Balance 618.5 ml Intake Oral 240 ml IV Total 978.5 ml Output Urine Total 600 ml Physical Exam General-not in any distress HEENT-normocephalic, no icterus, no pallor, neck supple Respiratory-fair air entry bilateral, no rhonchi, no wheeze [id number] heard, no murmurs appreciated Abdominal-soft, nontender, nondistended Musculoskeletal-no pedal edema, no calf tenderness Genitourinary-deferred Neuro-awake alert oriented x3, Psychiatric-not agitated, cooperative, Labs/Diagnostic Data Labs/Diagnostic Data Laboratory Tests Test 02/13/25 10:21 02/13/25 06:21 02/13/25 03:00 02/12/25 21:00 Range/Units Prothrombin Time 10.9 9.3-11.8 sec Prothrombin Time INR 1.03 0.9-1.15 Activated Partial Thromboplast Time 42.0 H 43.3 H 24.5-34.5 SEC POC Glucose 129 H 106 70-106 mg/dl White Blood Count 9.2 4.4-10.8 10^3/uL Red Blood Count 4.48 L 4.5-5.90 10^6/uL Hemoglobin 12.7 L 13.5-17.5 g/dL Hematocrit 39.2 L 41.0-53.0 % Mean Corpuscular Volume 87.4 80.0-100.0 fL Mean Corpuscular Hemoglobin 28.4 28.0-32.0 pg Mean Corpuscular Hemoglobin Concent 32.5 32.0-36.0 g/dL Red Cell Distribution Width 16.1 H 11.8-14.3 % Platelet Count 208 140-450 10^3/uL Mean Platelet Volume 8.8 6.9-10.8 fL Neutrophils (%) (Auto) 60.5 37.0-80.0 % Lymphocytes (%) (Auto) 28.1 10.0-50.0 % Monocytes (%) (Auto) 9.2 0.0-12.0 % Eosinophils (%) (Auto) 1.4 0.0-7.0 % Basophils (%) (Auto) 0.8 0.0-2.0 % Neutrophils # (Auto) 5.6 1.6-8.6 10 ^3/uL Lymphocytes # (Auto) 2.6 0.4-5.4 10 ^3/uL Monocytes # (Auto) 0.8 0-1.3 10 ^3/uL Eosinophils # (Auto) 0.1 0-0.8 10 ^3/uL Basophils # (Auto) 0.1 0-0.2 10 ^3/uL Nucleated Red Blood Cells 0.0 % Sodium Level 136 136-145 mmol/L Potassium Level 4.4 3.5-5.1 mmol/L Chloride Level 107 98-107 mmol/L Carbon Dioxide Level 22 20-31 mmol/L Anion Gap 7 5-15 Blood Urea Nitrogen 17 9-23 mg/dL Creatinine 1.71 H 0.700-1.30 mg/dL Glomerular Filtration Rate Calc 45 >90 mL/min BUN/Creatinine Ratio 9.9 L 10.0-20.0 Serum Glucose 142 H 74-106 mg/dL Calcium Level 9.3 8.7-10.4 mg/dL Magnesium Level 1.8 1.6-2.6 mg/dL Test 02/12/25 20:44 02/12/25 13:40 02/12/25 12:42 Range/Units Prothrombin Time 11.1 10.5 9.3-11.8 sec Prothrombin Time INR 1.05 0.99 0.9-1.15 Activated Partial Thromboplast Time 79.4 *H 29.3 24.5-34.5 SEC Troponin I High Sensitivity 6542 *H 5823 *H </=54 ng/L White Blood Count 9.5 4.4-10.8 10^3/uL Red Blood Count 4.92 4.5-5.90 10^6/uL Hemoglobin 14.1 13.5-17.5 g/dL Hematocrit 43.1 41.0-53.0 % Mean Corpuscular Volume 87.6 80.0-100.0 fL Mean Corpuscular Hemoglobin 28.6 28.0-32.0 pg Mean Corpuscular Hemoglobin Concent 32.6 32.0-36.0 g/dL Red Cell Distribution Width 16.0 H 11.8-14.3 % Platelet Count 239 140-450 10^3/uL Mean Platelet Volume 7.8 6.9-10.8 fL Neutrophils (%) (Auto) 63.2 37.0-80.0 % Lymphocytes (%) (Auto) 27.3 10.0-50.0 % Monocytes (%) (Auto) 7.5 0.0-12.0 % Eosinophils (%) (Auto) 1.3 0.0-7.0 % Basophils (%) (Auto) 0.7 0.0-2.0 % Neutrophils # (Auto) 6.0 1.6-8.6 10 ^3/uL Lymphocytes # (Auto) 2.6 0.4-5.4 10 ^3/uL Monocytes # (Auto) 0.7 0-1.3 10 ^3/uL Eosinophils # (Auto) 0.1 0-0.8 10 ^3/uL Basophils # (Auto) 0.1 0-0.2 10 ^3/uL Nucleated Red Blood Cells 0.2 % Sodium Level 136 136-145 mmol/L Potassium Level 4.4 3.5-5.1 mmol/L Chloride Level 106 98-107 mmol/L Carbon Dioxide Level 25 20-31 mmol/L Anion Gap 5 5-15 Blood Urea Nitrogen 21 9-23 mg/dL Creatinine 1.94 H 0.700-1.30 mg/dL Glomerular Filtration Rate Calc 38 >90 mL/min BUN/Creatinine Ratio 10.8 10.0-20.0 Serum Glucose 150 H 74-106 mg/dL Hemoglobin A1c 8.3 H <5.7 % A1C Calcium Level 9.6 8.7-10.4 mg/dL B-Type Natriuretic Peptide 74.88 0-100 pg/mL Triglycerides Level 203 H < 150 mg/dL Cholesterol Level 238 H < 200 mg/dL LDL Cholesterol 149 H < 100 mg/dL HDL Cholesterol 57 40-59 mg/dL Thyroid Stimulating Hormone (TSH) 5.15 H 0.55-4.78 uIU/mL Microbiology Date/Time Source Procedure Growth Status 02/12/25 20:00 Nose MRSA Screen - Final Complete Assessment Acute kidney injury on Chronic kidney disease three B hemodynamic mediated etiology Coronary artery disease multivessel HIV Hypertension Diabetes Recommendations Okay to DC IV fluids Pending higher level of care transfer for CABG We will follow renal function closely Plan discussed with: Patient CRUZ ROWLEY MD February 13, 2025 16:07
[2025-02-13 18:34] LABS: INR 1.05 (0.9-1.15); Partial Thromboplastin Time 61.2 SEC (24.5-34.5); Prothrombin Time 11.1 sec (9.3-11.8)
--- NOTE | 2025-02-13 19:08 | DVHINCON2 ---
Date of service: February 13, 2025 Referring Physician HILLARY Vega Reason for Consultation Acute hypoxic respiratory failure History of Present Illness A 64-year-old male with past medical history of hypertension, diabetes type 2, HIV/AIDS, and anemia who presented to the ED on 02/12/25 with chest pain radiating to his back. Patient described chest pain as 9/10 pressure-like, and sharp in his back, constant. He was at home watching TV at the time when the pain started. No triggering or alleviating factors. He denied any recent trauma or injury, fever, chills, lightheadedness, weakness, or GI symptoms. CXR revealed no acute disease. Patient was placed on supplemental O2 in ED, admitted for further care, and pulmonary consultation is requested for evaluation and management of acute hypoxic respiratory failure. Review of Systems: 14-point review of systems negative unless otherwise noted above. Past Medical History: Hypertension, diabetes type 2, HIV/AIDS, and anemia Past Surgical History: None Medications: Reviewed. Allergies: Shellfish. Family History: Diabetes. Social History: Former smoker. No alcohol or illicit drug use. Family History: Diabetes mellitus G8 MOTHER Allergies: Coded Allergies: Shellfish Allergy (Verified Allergy, Intermediate, swollen eyes/ itchy throat, 02/12/25) Home Meds Reported Medications Lisinopril (Lisinopril) 40 Mg Tab, 40 MG PO DAILY for 30 Days, MG 02/12/25 Dolutegravir/Rilpivirine (Juluca 50-25 mg) 1 Tab Tab, 1 TAB PO DAILY, TAB 02/12/25 Glipizide (Glipizide) 10 Mg Tab, 1 TAB PO BID, #60 TAB 5 Refills 02/12/25 Citalopram Hydrobromide (Citalopram Hydrobromide) 40 Mg Tab, 40 MG PO DAILY for 30 Days, MG 02/12/25 Darunavir Ethanolate (PREZISTA) 800 Mg Tab, 800 MG PO DAILY, TAB 02/12/25 Ritonavir (Norvir) 100 Mg Tab, 100 MG PO DAILY, TAB 02/12/25 Pioglitazone Hydrochloride (ACTOS TABLET) 30 Mg Tb, 45 MG PO DAILY, TAB 02/12/25 Ezetimibe (Zetia) 10 Mg Tab, 10 MG PO DAILY, TAB 02/12/25 Metoprolol Tartrate (Metoprolol Tartrate) 25 Mg Tab, 25 MG PO DAILY for 30 Days, MG 02/12/25 Atorvastatin Calcium (ATORVASTATIN CALCIUM) 80 Mg Tab, 1 TAB PO DAILY, #30 TAB 5 Refills 02/12/25 Current Medications Current Medications Medications (Trade) Dose Ordered Sig/Jose Route PRN Reason Start Time Stop Time Status Last Admin Atorvastatin Calcium (Lipitor) 40 mg HS PO 02/12/25 22:00 02/12/25 20:52 Carvedilol (Coreg Tablet) 6.25 mg Q12HR PO 02/12/25 22:00 02/13/25 09:55 Aspirin 81 mg DAILY PO 02/13/25 10:00 02/13/25 09:55 Diagnostic Test (Pha) (Accu-Chek Comfort Curve T) 1 strip ACHS 02/12/25 22:00 02/13/25 12:01 Insulin Human Regular (InsuLIN R) ACHS SC 02/12/25 22:00 Heparin Sodium/ Dextrose 250 ml @ 7 mls/hr Q24H IV 02/12/25 21:30 Cancel Heparin Sodium/ Dextrose 250 ml @ 7 mls/hr Q24H IV 02/12/25 21:45 02/13/25 04:19 DC 02/12/25 22:19 Heparin Sodium/ Dextrose 250 ml @ 9 mls/hr Q24H IV 02/13/25 04:30 02/13/25 12:11 DC 02/13/25 04:32 Heparin Sodium/ Dextrose 250 ml @ 11 mls/hr [id number] IV 02/13/25 12:15 02/13/25 12:31 Vital Signs Vital Signs Date Time Temp Pulse Resp B/P (MAP) Pulse Ox O2 Delivery O2 Flow Rate FiO2 02/13/25 18:45 101 13 112/62 (79) 96 02/13/25 18:00 Room Air* 0 21 02/13/25 16:00 97.9 97.9 Physical Exam Gen.: Patient lying in bed in no apparent distress. Breathing on room air. Head: Normocephalic, atraumatic. Eyes: EOMI/PERRLA. Ears: Normal hearing. Normal anatomy. Neck/trachea: Trachea midline, supple. Nose: Normal external anatomy. Mouth: Moist mucous membranes. Chest: Decreased air entry bilaterally. No wheezing or rhonchi. Cardiovascular: Positive S1, positive S2. Regular rate and rhythm. Abdomen: Positive bowel sounds in all 4 quadrants. Soft, non-tender, non- distended. : Deferred. Rectal: Deferred. Skin: Warm, dry. Intact. Extremities: 2+ radial pulses bilaterally. No lower extremity edema. Neuro: Awake, alert, oriented x3. No gross motor or sensory deficits. Cranial nerves II through XII intact. Gait not assessed. Labs/Diagnostic Data Labs Test 02/13/25 17:57 02/13/25 06:21 02/13/25 03:00 02/12/25 13:40 Range/Units Prothrombin Time 11.1 9.3-11.8 sec Prothrombin Time INR 1.05 0.9-1.15 Activated Partial Thromboplast Time 61.2 H 24.5-34.5 SEC POC Glucose 129 H 70-106 mg/dl White Blood Count 9.2 4.4-10.8 10^3/uL Red Blood Count 4.48 L 4.5-5.90 10^6/uL Hemoglobin 12.7 L 13.5-17.5 g/dL Hematocrit 39.2 L 41.0-53.0 % Mean Corpuscular Volume 87.4 80.0-100.0 fL Mean Corpuscular Hemoglobin 28.4 28.0-32.0 pg Mean Corpuscular Hemoglobin Concent 32.5 32.0-36.0 g/dL Red Cell Distribution Width 16.1 H 11.8-14.3 % Platelet Count 208 140-450 10^3/uL Mean Platelet Volume 8.8 6.9-10.8 fL Neutrophils (%) (Auto) 60.5 37.0-80.0 % Lymphocytes (%) (Auto) 28.1 10.0-50.0 % Monocytes (%) (Auto) 9.2 0.0-12.0 % Eosinophils (%) (Auto) 1.4 0.0-7.0 % Basophils (%) (Auto) 0.8 0.0-2.0 % Neutrophils # (Auto) 5.6 1.6-8.6 10 ^3/uL Lymphocytes # (Auto) 2.6 0.4-5.4 10 ^3/uL Monocytes # (Auto) 0.8 0-1.3 10 ^3/uL Eosinophils # (Auto) 0.1 0-0.8 10 ^3/uL Basophils # (Auto) 0.1 0-0.2 10 ^3/uL Nucleated Red Blood Cells 0.0 % Sodium Level 136 136-145 mmol/L Potassium Level 4.4 3.5-5.1 mmol/L Chloride Level 107 98-107 mmol/L Carbon Dioxide Level 22 20-31 mmol/L Anion Gap 7 5-15 Blood Urea Nitrogen 17 9-23 mg/dL Creatinine 1.71 H 0.700-1.30 mg/dL Glomerular Filtration Rate Calc 45 >90 mL/min BUN/Creatinine Ratio 9.9 L 10.0-20.0 Serum Glucose 142 H 74-106 mg/dL Calcium Level 9.3 8.7-10.4 mg/dL Magnesium Level 1.8 1.6-2.6 mg/dL Troponin I High Sensitivity 6542 *H </=54 ng/L Test 02/12/25 12:42 Range/Units Hemoglobin A1c 8.3 H <5.7 % A1C B-Type Natriuretic Peptide 74.88 0-100 pg/mL Triglycerides Level 203 H < 150 mg/dL Cholesterol Level 238 H < 200 mg/dL LDL Cholesterol 149 H < 100 mg/dL HDL Cholesterol 57 40-59 mg/dL Thyroid Stimulating Hormone (TSH) 5.15 H 0.55-4.78 uIU/mL Microbiology Date/Time Source Procedure Growth Status 02/12/25 20:00 Nose MRSA Screen - Final Complete Assessment Impression: Acute hypoxic respiratory failure Non-ST elevation myocardial infarction Multivessel coronary artery disease Hx of nicotine dependence Hypertensive urgency Plan: Supplemental oxygen PRN Titrate to keep O2 sats above 92%. Patient recommended for higher level of care for CABG Cardiology recs appreciated On nitroglycerin drip Heparin drip Antihypertensive IV fluids with NS Monitor renal function. Monitor electrolytes. Supplement as necessary. Monitor ins and outs. DVT prophylaxis. Prognosis: Poor given patient's multiple co-morbidities. Condition: Critical Rest of plan per hospitalist and other consultants. A total of 35 minutes of critical care time was spent reviewing the patient record, examining the patient, making a diagnostic and therapeutic plan, discussing this plan with the medical personnel, following up on diagnostic studies and following the patient for clinical stability excluding any and all procedures. At least 50% of this time was spent in direct, [id number] contact. Thank you, LAURA Pineda, for allowing me to participate in this patient's care. Further recommendations will depend on the patient's clinical course. Please do not hesitate to contact me if you have any questions or concerns. This medical document was created using an electronic medical record system with [employer] dictation system. Although these documentations are being carefully reviewed, there may still be some phonetic and typographical changes. The errors are purely typographical, due to imperfection on the software prog lavelle, and do not reflect any compromise in the patient's medical care. Plan discussed with: Patient, Spouse, Other (FALLON Hawley/LAURA Pineda/) JACQUELYN GARCIA MD February 13, 2025 19:08
--- NOTE | 2025-02-15 10:32 | ECG ---
[facility] Test Date: 2025-02-12 Test Time: 12:07:56 Pat Name: LISSA VALADEZ Department: ED Room: [address] [place] [address] Gender: M Manufacturing Coordinator: MARIANGEL : 1960 Requested By: HAYDEN VALDERRAMA Order Number: [id number] Reading MD: Measurements Intervals Rogers Rate: 94 P: 54 MS: 163 QRS: 6 QRSD: 78 T: -3 QT: 376 QTc: 471 Interpretive Statements Sinus rhythm Inferior infarct, age indeterminate Please click the below link to view image of tracing.
== END 2025-02-13 19:09 | disposition short-term general hospital (02) | DRG 190 ==
LOC: EDBD 12:06 → ER 12:12 → OVERFLOW 17:27 → ICU WEST 19:51
PROC: 4A023N7 Measurement of Cardiac Sampling and Pressure, Left Heart, Percutaneous Approach (ICD-10-PCS; principal; 2025-02-12)
PROC: B211YZZ Fluoroscopy of Multiple Coronary Arteries using Other Contrast (ICD-10-PCS; 2025-02-12)
PROC: B215YZZ Fluoroscopy of Left Heart using Other Contrast (ICD-10-PCS; 2025-02-12)
PROC: B240ZZ3 Ultrasonography of Single Coronary Artery, Intravascular (ICD-10-PCS; 2025-02-12)
DX: I21.4 Non-ST elevation (NSTEMI) myocardial infarction (principal); I50.21 Acute systolic (congestive) heart failure; N17.9 Acute kidney failure, unspecified; I13.0 Hypertensive heart and chronic kidney disease with heart failure and stage 1 through stage 4 chronic kidney disease, or unspecified chronic kidney disease; I25.10 Atherosclerotic heart disease of native coronary artery without angina pectoris; F32.A Depression, unspecified; E78.5 Hyperlipidemia, unspecified; N18.30 Chronic kidney disease, stage 3 unspecified; E11.22 Type 2 diabetes mellitus with diabetic chronic kidney disease; E66.9 Obesity, unspecified; Z88.3 Allergy status to other anti-infective agents; Z87.891 Personal history of nicotine dependence; Z79.4 Long term (current) use of insulin; Z91.013 Allergy to seafood; Z79.899 Other long term (current) drug therapy; Z83.3 Family history of diabetes mellitus; Z68.24 Body mass index [BMI] 24.0-24.9, adult
CPT/HCPCS: 36415; 71045; 80048; 80061; 82962; 83036; 83735; 83880; 84443; 84484; 85025; 85610; 85730; 87081; 93005; 93306; 93458; 96374; 96375; 99152; 99291; C1887; G0378; J2250; Q9967